=== PATIENT | male | born 1995 | race African-American/Black ===

== ENCOUNTER 2016-07-15 20:16 | Emergency (ER) | payer SELFPAY ==
[~2016-07-15] VITALS: Ht 177.8 cm; Wt 90.0 kg
[2016-07-15] MEDS ORDERED: KETOROLAC TROMETHAMINE 30 MG/ML VIAL IVP ONE (21:15)
[2016-07-15] MEDS ORDERED: ONDANSETRON HCL 4 MG/2 ML VIAL IVP ONE (21:15)
[2016-07-15 22:49] VITALS: BP 139/86
== END 2016-07-15 22:53 | disposition home or self-care (01) ==
LOC: EMS 20:17
DX: G43.909 Migraine, unspecified, not intractable, without status migrainosus (principal); F17.210 Nicotine dependence, cigarettes, uncomplicated
CPT/HCPCS: 70450; 96374; 96375; 99284; J1885; J2405

== ENCOUNTER 2017-08-22 16:40 | Emergency (ER) | payer SELFPAY ==
[~2017-08-22] VITALS: Ht 175.3 cm; Wt 86.4 kg
[2017-08-22] MEDS ORDERED: HYDROCODONE/ACETAMINOPHEN 5-325 MG TABLET PO ONE (17:45)
[2017-08-22 19:27] VITALS: BP 132/88
== END 2017-08-22 19:31 | disposition home or self-care (01) ==
LOC: EMS 16:41
DX: S90.31XA Contusion of right foot, initial encounter (principal); F12.90 Cannabis use, unspecified, uncomplicated; Z88.6 Allergy status to analgesic agent; W22.8XXA Striking against or struck by other objects, initial encounter; Y93.61 Activity, american tackle football; Y92.89 Other specified places as the place of occurrence of the external cause; Y99.8 Other external cause status
CPT/HCPCS: 99284